=== PATIENT | female | born 1990 | race Caucasian/White ===

== ENCOUNTER → 2016-08-13 | Outpatient (CLI) | payer OTHER ==
[2016-08-13 15:24] LABS: CH 32.2; CHCM 32.8; HCT 34.1 % (34.0-46.0); HDW 2.34; HGB 10.9 gm/dL (11.4-16.0); MCH 31.6 pg (25.0-35.0); MCV 98.6 fL (80.0-100.0); Mean Platelet Volume 7.9; RBC 3.45 m/uL (3.80-5.40); RDW 13.3 % (11.5-15.5); WBC 7.2 k/uL (3.8-10.6)
== END | disposition home or self-care (01) ==
LOC: LABWHC1 14:00
PROVIDERS: ATTEND Obstetrics & Gynecology
DX: Z34.92 Encounter for supervision of normal pregnancy, unspecified, second trimester (principal); Z3A.00 Weeks of gestation of pregnancy not specified
CPT/HCPCS: 36415; 82950; 85027

== ENCOUNTER → 2016-10-14 | Outpatient (CLI) | payer OTHER ==
--- NOTE | 2016-10-14 11:55 | US ---
EXAMINATION TYPE: US OB anatomy transabd third trimester DATE OF EXAM: 10/14/2016 11:25 AM COMPARISON: In pacs first trimester May 14, 2016 HISTORY: Large for dates TECHNIQUE: Transabdominal (TA) pelvic ultrasound. EXAM MEASUREMENTS: GESTATIONAL AGE / DATING Physician Established: (33 weeks/0 days) EDC: 12/02/2016 Dates by LMP: Unknown Dates by First Scan: (33 weeks/6 days) EDC: 11/26/2016 Dates by Current Scan for: (34 weeks/1 days) EDC: 11/24/2016 SURVEY IUP: Single PLACENTA: Fundal PREVIA: No previa DOM: 14.3 cm Normal CERVICAL LENGTH (transabdominal: norm > 3.0cm): 4.1 cm BIOMETRY PRESENTATION: Vertex BPD: 8.5 cm 34 weeks / 2 days HC: 30.6 cm 34 weeks / 1 days AC: 28.7 cm 32 weeks / 6 days FL: 6.8 cm 35 weeks / 0 days ESTIMATED WEIGHT IN GRAMS: 2244 grams ESTIMATED WEIGHT IN LBS/OZS: 4 lbs. 15 oz. WEIGHT PERCENTAGE BASED ON ESTABLISHED DATE: 62 % HC/AC: 1.07 Normal FL/AC: 24% Normal HEART RATE: 144 bpm RHYTHM: Normal ANATOMY SEEN (within normal limits): Midline Falx Cavus Septi Pellucidi Four Chamber Heart Outflow tracts: LVOT/RVOT Stomach Situs Nose / Lips Diaphragm Kidneys (bilateral) Bladder Cord Insert Three Vessel Cord Longitudinal Spine ANATOMY NOT SEEN: Due to advanced age, 3rd trimester * Lateral Vent (< 1 cm) cm * Cisterna Magna (< 1.1 cm) cm * Nuchal Fold (< 0.6 cm) cm * Cerebellum (varies with age) cm Choroid Plexus (bilateral) Transverse Spine Arms (bilateral) Legs (bilateral) TECHNOLOGIST IMPRESSION: Viable single IUP measuring 34 weeks 1 day with a heart rate of 144bpm and an estimated delivery date of 11/24/2016. Single live intrauterine gestation is redemonstrated. Normal cephalad presentation to fetus is presen t currently. Amniotic fluid index is within normal limits. biometry measurements are congruent and within normal limits. Detailed anatomical survey is suboptimal due to advanced age and position, cranial structures a s well as bilateral extremities and spine are suboptimally evaluated during real-time scanning. Other structures noted above are within normal limits on still images saved and during real-time scanning. IMPRESSION: As above.
== END | disposition home or self-care (01) ==
LOC: RADUSWWP 10:39
PROVIDERS: ATTEND Obstetrics & Gynecology
DX: O36.63X0 Maternal care for excessive fetal growth, third trimester, not applicable or unspecified (principal); Z3A.34 34 weeks gestation of pregnancy
CPT/HCPCS: 76811

== ENCOUNTER 2016-11-23 18:49 | Inpatient (IN) | payer OTHER ==
[2016-11-23] MEDS ORDERED: CITRIC ACID-SODIUM CITRATE 15 ML CUP PO ONE (21:13)
[2016-11-23] MEDS ORDERED: LACTATED RINGERS 1,000 ML IV ONE (21:13)
--- NOTE | 2016-11-23 21:13 | US ---
EXAMINATION TYPE: US OB limited DATE OF EXAM: 11/23/2016 9:05 PM COMPARISON: Prior in PACS CLINICAL HISTORY: DOM, position. EXAM PERFORMED: Transabdominal (TA) GESTATIONAL AGE / DATING Physician Established: (38 weeks/5 days) EDC: 12/02/2016 Dates by Current Scan: No growth performed on today?s study per ordering physician SURVEY DOM: 4.3 cm Oligohydraminos Ultrasound evidence of premature rupture of membranes? Yes PRESENTATION: Vertex LIE: Longitudinal HEART RATE: 140 bpm RHYTHM: Normal Oligohydraminos IMPRESSION: There is oligohydramnios. The heart rate is 140. There is cephalic presentation.
--- NOTE | 2016-11-23 21:20 | P.HPOB ---
History of Present Illness H&P Date: 11/23/16 Chief Complaint: IUP term: previous c/s: MUKUND Alexander is a 26-year-old with a previous section desiring same. She reports that earlier this afternoon she began having leaking of fluid it last for several hours. However type skin labor delivery there was no more leaking. And Essure was negative. However I did order an ultrasound based on her description and her DOM is less than 5. With large maximal vertical pocket of 1.7 cm. I'm presuming rupture membranes and we'll proceed with repeat low transverse section. Her course otherwise has been unremarkable and she was scheduled for section on Tuesday.. Pertinent labs do include O+ blood type Rh was negative. Rubella was immune, hepatitis be surface antigen and RPR as well as cystic fibrosis screening and HIV were all negative. Risks/benefits alternatives to a repeat low transverse section have been discussed and all questions are answered for her prior to proceeding to the operating room. On physical exam vital signs are stable and afebrile. Heart regular, lungs clear, extremities without pain. Abdomen soft gravid uterus is noted. She is currently dilated to 3 cm 60% effaced -2 station. Assessment intrauterine at term: Previous section: SROM plan repeat low transverse section Past Medical History History of Any Multi-Drug Resistant Organisms: None Reported Smoking Status: Never smoker Medications and Allergies Home Medications Medication Instructions Recorded Confirmed Type Pnv with Ca,No.72/Iron/FA 1 tab PO DAILY 11/22/16 11/23/16 History [ Plus Tablet] Allergies Allergy/AdvReac Type Severity Reaction Status Date / Time No Known Allergies Allergy Verified 11/23/16 19:00 Exam Osteopathic Statement: *. No significant issues noted on an osteopathic structural exam other than those noted in the History and Physical/Consult. - Vital Signs Vital signs: Vital Signs Temp Pulse Resp BP Pulse Ox 11/23/16 19:11 98.2 F 69 16 134/82 98 Intake and Output 11/23/16 11/23/16 11/23/16 06:59 14:59 22:59 Other: Weight 79.832 kg Patient Weight 11/24/16 06:59 Weight 79.832 kg
[2016-11-23] MEDS ORDERED: ceFAZolin 2 GM in SODIUM CHLORIDE 0.9% 100 ML IVPB ONE (21:30)
[2016-11-23] MEDS ORDERED: ONDANSETRON 4 MG/2 ML VIAL ONE (21:35)
[2016-11-23] MEDS ORDERED: ePHEDrine 50 MG/ML 1 ML AMP ONE (21:35)
[2016-11-23] MEDS ORDERED: HYDROmorphone (PF) 1 MG/ML ONE (21:35)
[2016-11-23] MEDS ORDERED: KETOROLAC 30 MG/ML 1 ML VIAL ONE (21:35)
[2016-11-23] MEDS ORDERED: fentaNYL (PF) 50 MCG/ML 2 ML AMP ONE (21:35)
[2016-11-23] MEDS ORDERED: OXYTOCIN 10 UNIT/ML 1 ML VIAL IM ONE (21:35)
[2016-11-23 21:40] LABS: Basophils % (A) 0 %; CH 29.7; CHCM 32.3; Eosinophils # (A) 0.1 k/uL (0-0.7); Eosinophils % (A) 1 %; HCT 33.8 % (34.0-46.0); HDW 2.81; Hypochromasia Slight; Luc # (Auto) 0.15; Luc % (Auto) 2; Lymphocytes # (A) 1.7 k/uL (1.0-4.8); Lymphocytes % (A) 21 %; MCHC 32.5 g/dL (31.0-37.0); MCV 92.3 fL (80.0-100.0); Mean Platelet Volume 7.8; Monocytes # (A) 0.3 k/uL (0-1.0); Monocytes % (A) 4 %; Neutrophils # (A) 5.9 k/uL (1.3-7.7); Neutrophils % (A) 72 %; RBC 3.66 m/uL (3.80-5.40); RDW 13.7 % (11.5-15.5); WBC 8.1 k/uL (3.8-10.6); WBC (Perox) 8.41
--- NOTE | 2016-11-23 22:13 | P.OP ---
Date of Procedure: 11/23/16 Preoperative Diagnosis: IUP term: SROM: previous c/s Postoperative Diagnosis: same Procedure(s) Performed: Repeat low transverse section Anesthesia: spinal Surgeon: Santhosh Denton Seed Cleaner #1: Martínez Mccarthy Estimated Blood Loss (ml): 600 IV fluids (ml): 1,000 Urine output (ml): 300 Pathology: other (Placenta) Condition: stable Disposition: floor Operative Findings: Female scores of 8 and 9 at one and 5 minutes respectively and weight was 7 lbs. 2 oz. Description of Procedure: Patient was taken to the operating suite where a spinal anesthetic was found be adequate. She was prepped and draped in the normal sterile fashion placed in the dorsal supine position with leftward tilt. Initially a Pfannenstiel skin incision was made and this incision was then carried through to underlying layer of the fascia was second knife. Fascia was then nicked in the midline and this opening was extended laterally with Lang scissors. Superior and inferior aspect of this incision were then grasped tented up and bluntly and sharply dissected off the rectus muscles. Rectus muscles were then divided in the midline and blunt dissection through the peritoneum was made. This opening was then extended superiorly and inferiorly with good visualization of both bowel bladder. Bladder blade was then placed bladder flap identified and entered sharply with Metzenbaum scissors. His opening was then extended across face of the uterus with Metzenbaum scissors and bladder flap was digitally created. Knife was then used to incise uterus this opening was then opened fully with hemostat and extended bluntly. Head was then atraumatically delivered and mouth nares were bulb suctioned. Shoulders were then delivered with gentle downward upper traction followed by the remainder the baby. Umbilical cord was then clamped cut usual fashion an nursery personnel was present to assume care. Placenta was then delivered intact and Pitocin was added to the IV. Uterus was then exteriorized cleared of clots and debris and closed in 2 layers with 0 Vicryl suture. Once excellent hemostasis was obtained blood and debris was suctioned the posterior cul-de-sac and the uterus was reinserted into the abdomen. Peritoneal layer was then closed with 0 Vicryl suture fascial layer was closed with 0 Vicryl suture one layer of 3-0 Vicryl was placed in deep subcuticular tissues to reapproximate skin and the skin was then closed with 3-0 Vicryl in a Javier needle. Sponge, lap, needle counts were correct 2. Patient was then taken to the recovery room in stable and satisfactory condition.
[2016-11-23] MEDS ORDERED: SIMETHICONE 80 MG CHEWABLE PO PRN (23:27)
[2016-11-23] MEDS ORDERED: ACETAMINOPHEN TAB 325 MG TAB PO PRN (23:27)
[2016-11-23] MEDS ORDERED: diphenhydrAMINE 50 MG CAP PO PRN (23:27)
[2016-11-23] MEDS ORDERED: diphenhydrAMINE 50 MG/ML 1 ML VIAL IVP PRN ×2 (23:27)
[2016-11-23] MEDS ORDERED: Acetaminophen-Codeine 300-30mg TAB PO PRN ×2 (23:27)
[2016-11-23] MEDS ORDERED: KETOROLAC 30 MG/ML 1 ML VIAL IVP PRN (23:27)
[2016-11-23] MEDS ORDERED: NALOXONE 0.4 MG/ML 1 ML VIAL IV PRN (23:27)
[2016-11-23] MEDS ORDERED: METOCLOPRAMIDE 5 MG/ML 2 ML VIAL IVP PRN (23:27)
[2016-11-23] MEDS ORDERED: diphenhydrAMINE 25 MG CAP PO PRN (23:27)
[2016-11-23] MEDS ORDERED: ONDANSETRON 4 MG/2 ML VIAL IVP PRN (23:27)
[2016-11-23] MEDS ORDERED: IBUPROFEN 600 MG TAB PO PRN (23:27)
[2016-11-23] MEDS ORDERED: ZOLPIDEM 5 MG TAB PO PRN (23:27)
[2016-11-23] MEDS ORDERED: LACTATED RINGERS 1,000 ML IV SCH (23:27)
[2016-11-24] MEDS: LACTATED RINGERS 1,000 ML IV SCH ×4 (00:02→22:48)
[2016-11-24] MEDS ORDERED: NALOXONE 0.4 MG/ML 1 ML VIAL IV PRN (00:07)
[2016-11-24] MEDS ORDERED: diphenhydrAMINE 25 MG CAP PO PRN (00:07)
[2016-11-24] MEDS ORDERED: METOCLOPRAMIDE 5 MG/ML 2 ML VIAL IVP PRN (00:07)
[2016-11-24] MEDS ORDERED: Acetaminophen-Codeine 300-30mg TAB PO PRN ×2 (00:07)
[2016-11-24] MEDS ORDERED: ACETAMINOPHEN TAB 325 MG TAB PO PRN (00:07)
[2016-11-24] MEDS ORDERED: SIMETHICONE 80 MG CHEWABLE PO PRN (00:07)
[2016-11-24] MEDS ORDERED: ZOLPIDEM 5 MG TAB PO PRN (00:07)
[2016-11-24] MEDS ORDERED: diphenhydrAMINE 50 MG CAP PO PRN (00:07)
[2016-11-24] MEDS ORDERED: KETOROLAC 30 MG/ML 1 ML VIAL IVP PRN (00:07)
[2016-11-24] MEDS ORDERED: ONDANSETRON 4 MG/2 ML VIAL IVP PRN (00:07)
[2016-11-24] MEDS ORDERED: diphenhydrAMINE 50 MG/ML 1 ML VIAL IVP PRN ×2 (00:07)
--- NOTE | 2016-11-24 07:42 | P.PN ---
Progress Note - Text 0708 Anesthesia POD 1. Patient is status post section under spinal anesthesia with intra-thecal preservative free morphine 300 g. Minimal pruritus, good post-op analgesia, and no headache or other complications.
[2016-11-24] MEDS ORDERED: SENNOSIDES-DOCUSATE SODIUM 1 EACH TAB PO SCH (08:00)
[2016-11-24] MEDS: SENNOSIDES-DOCUSATE SODIUM 1 EACH TAB PO SCH ×2 (08:14→20:35)
--- NOTE | 2016-11-24 08:24 | P.PNOBGPC ---
Subjective - Subjective Principal diagnosis: Postop day 1 Interval history: Overall stairs doing very well. She is ambulating, and she is tolerating her diet. She voices no complaints. She did have some blood around her incision and the dressing was changed this morning otherwise she is stable. Patient reports: Reports appetite normal, Reports voiding normally, Reports pain well controlled, Reports ambulating normally [place]: doing well Objective - Vital Signs Latest vital signs: Vital Signs Temp Pulse Resp BP Pulse Ox 11/24/16 04:00 97.9 F 72 14 121/82 98 11/24/16 00:18 97.1 F L 72 16 144/76 98 11/23/16 23:48 97.1 F L 66 16 137/74 100 11/23/16 23:18 97.0 F L 70 14 140/79 99 11/23/16 23:03 69 16 141/78 99 11/23/16 22:48 97.1 F L 73 14 136/79 98 11/23/16 22:33 72 14 120/68 98 11/23/16 22:18 97.4 F L 70 14 141/67 98 11/23/16 19:11 98.2 F 69 16 134/82 98 Intake and Output 11/23/16 11/24/16 11/24/16 22:59 06:59 14:59 Intake Total 1000 1100 Output Total 900 2100 Balance 100 -1000 Intake: IV 1000 1000 Lactated Ringers 1,000 ml 1000 @ 125 mls/hr IV .Q8H [facility] Rx#:[id number] Intake, IV Titration 100 Amount ceFAZolin 2 gm In Sodium 100 Chloride 0.9% 100 ml @ 100 mls/hr IVPB ONCE ONE Rx#:[id number] Output: Urine 300 2100 Uretheral (Chauhan) 2000 Estimated Blood Loss 600 Other: Voiding Method Indwelling Catheter Indwelling Catheter Weight 79.832 kg - Exam Lungs: bilateral: normal Chest: Normal S1, Normal S2 Extremities: Present: normal Abdomen: Present: normal appearance, soft. Absent: distention, tenderness Incision: Present: normal, dry, intact Uterus: Present: normal, firm - Labs Labs: Abnormal Lab Results - Last 24 Hours (Table) 11/23/16 Range/Units 21:15 RBC 3.66 L (3.80-5.40) m/uL Hgb 11.0 L (11.4-16.0) gm/dL Hct 33.8 L (34.0-46.0) %
[2016-11-24] MEDS: IBUPROFEN 600 MG TAB PO PRN (18:52)
[2016-11-25 06:32] VITALS: RESP 16
[2016-11-25 06:49] LABS: Basophils % (A) 0 %; CH 29.7; CHCM 32.3; Eosinophils # (A) 0.1 k/uL (0-0.7); Eosinophils % (A) 1 %; HCT 31.5 % (34.0-46.0); HDW 2.95; HGB 10.2 gm/dL (11.4-16.0); Hypochromasia Slight; Luc # (Auto) 0.17; Luc % (Auto) 2; Lymphocytes % (A) 28 %; MCHC 32.5 g/dL (31.0-37.0); MCV 92.3 fL (80.0-100.0); Mean Platelet Volume 7.2; Monocytes # (A) 0.3 k/uL (0-1.0); Monocytes % (A) 4 %; Neutrophils # (A) 4.5 k/uL (1.3-7.7); Neutrophils % (A) 65 %; RBC 3.41 m/uL (3.80-5.40); RDW 13.5 % (11.5-15.5); WBC (Perox) 7.66
[2016-11-25] MEDS: LACTATED RINGERS 1,000 ML IV SCH (07:33)
[2016-11-25] MEDS: SENNOSIDES-DOCUSATE SODIUM 1 EACH TAB PO SCH (07:47)
[2016-11-25] MEDS: IBUPROFEN 600 MG TAB PO PRN (07:47)
[2016-11-25 09:15] VITALS: BP 128/76; PULSE 63; TEMP 97
--- NOTE | 2016-11-25 12:38 | P.DS ---
Providers Date of admission: 11/23/16 21:10 Expected date of discharge: 11/25/16 Attending physician: Santhosh Denton Primary care physician: Santhosh Denton [facility] Course: This is a 26-year-old female 2 para 1 at 38 weeks who presented in labor. Please see history and physical for details the patient admission. She underwent a repeat low transverse section on 11/23/2016 and delivered a viable female infant with scores of 8 at 1 minute and 9 at 5 minutes and weight of 7 lbs. 2 oz. Her postoperative course has been essentially uncomplicated. She did have some bleeding from her incision on postoperative day #1 that has resolved. She is passing flatus and did have a small bowel movement. She is bottle feeding. Lochia is decreasing. Pain is well-controlled on oral pain medications. Vital signs are stable. Abdomen is soft with fundus firm and nontender. Incision is clean dry and intact with some ecchymosis noted underneath the incision. Extremities show negative Homans. Impression is status post repeat section postoperative day # 2. Plan is to discharge home today. Routine postoperative and instructions are given. She is advised to follow up with Dr. Denton in the office in 1 week. He has already written prescriptions for her. She is advised to call the office if she needs anything further prior to her appointment time. Procedures: Repeat low transverse section on 11/23/2016. Patient Condition at Discharge: Stable Plan - Discharge Summary New Discharge Prescriptions: Acetaminophen-Codeine 300-30mg [Tylenol #3] 1 tab PO Q4H PRN #30 tablet PRN Reason: Pain Ibuprofen [Motrin] 600 mg PO Q6HR PRN #30 tab PRN Reason: Pain Discharge Medication List Pnv with Ca,No.72/Iron/FA [ Plus Tablet] 1 tab PO DAILY 11/22/16 [ History] Acetaminophen-Codeine 300-30mg [Tylenol #3] 1 tab PO Q4H PRN #30 tablet [Rx] Ibuprofen [Motrin] 600 mg PO Q6HR PRN #30 tab 11/24/16 [Rx] Follow up Appointment(s)/Referral(s): Santhosh Denton DO [Primary Care Provider] - 1 Week Activity/Diet/Wound Care/Special Instructions: Ting, limit stairs and driving and pelvic rest. If any high temperatures, heavy bleeding, or severe pain call my office Discharge Disposition: HOME SELF-CARE
== END 2016-11-25 13:50 | disposition home or self-care (01) | DRG 766 ==
LOC: FBPOP 18:49 → 4FBP 21:10
PROVIDERS: ADMIT Obstetrics & Gynecology; ATTEND Obstetrics & Gynecology
PROC: 10D00Z1 Extraction of Products of Conception, Low, Open Approach (ICD-10-PCS; principal; 2016-11-23 21:44)
DX: O42.92 Full-term premature rupture of membranes, unspecified as to length of time between rupture and onset of labor (principal); Z37.0 Single live birth; O34.219 Maternal care for unspecified type scar from previous cesarean delivery; Z3A.38 38 weeks gestation of pregnancy
CPT/HCPCS: 59025; 76815; 84112; 85025; 86850; 86900; 86901; 88307; 99213

== ENCOUNTER 2023-05-13 06:00 | Inpatient (IN) | payer OTHER ==
--- NOTE | 2023-05-12 19:00 | P.HPOB ---
History of Present Illness H&P Date: 05/12/23 Chief Complaint: Scheduled repeat section with bilateral tubal ligation This is a 32 y.o. female, 3, para 2, with an estimated date of confinement of 05/20/2023 based on 11-5/7 week US inconsistent with LMP, estimated gestational age of 39-0/7 weeks, who presents for repeat low transverse section with bilateral partial salpingectomy for family jacqueline nning. She transferred care to de at 16 weeks. Her has been relatively uncomplicated. Ultrasound at 34 weeks showed estimated weight of 5#9oz (64%). labs: Blood type-O+ Antibody screen-neg RPR-NR Rubella-immune Hepatitis B surface antigen-neg Hepatitis C-neg GC/Chlamydia-neg Hemoglobin-11.5 HIV-NR 1 HR. GTT-113 Toxoplasma-neg GBS-neg OB Hx: . History of 2 previous sections. 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 Review of Systems Constitutional: Denies chills, Denies fever Eyes: denies blurred vision, denies pain Ears, nose, mouth and throat: Denies headache, Denies sore throat Cardiovascular: Denies chest pain, Denies shortness of breath Gastrointestinal: Reports abdominal pain (irregular contractions) Genitourinary: Reports pelvic pain, Reports Musculoskeletal: Reports low back pain Integumentary: Denies pruritus, Denies rash Neurological: Denies numbness, Denies weakness Psychiatric: Denies anxiety, Denies depression Past Medical History Past Medical History: No Reported History Past Surgical History: Section (x2) Additional Past Surgical History / Comment(s): Oral surgery Past Psychological History: No Psychological Hx Reported Smoking Status: Never smoker Past Alcohol Use History: None Reported Past Drug Use History: None Reported - Past Family History Mother Family Medical History: Cancer (skin) Medications and Allergies Home Medications Medication Instructions Recorded Confirmed Type No Known Home Medications 05/13/23 05/13/23 History Allergies Allergy/AdvReac Type Severity Reaction Status Date / Time No Known Allergies Allergy Verified 05/13/23 06:09 Exam Osteopathic Statement: *. No significant issues noted on an osteopathic structural exam other than those noted in the History and Physical/Consult. HEENT: within normal limits Heart: regular rate and rhythm Lungs: clear to auscultation bilaterally Abdomen: , non-tender Cervix: 1 cm/60%/-3 heart tones: 140's by doppler Extremities: neg. Myah's Results Result Diagrams: 05/13/23 06:11 Assessment and Plan (1) 39 weeks gestation of Current Visit: No Status: Acute Code(s): Z3A.39 - 39 WEEKS GESTATION OF SNOMED Code(s): 88644494 Plan: Admission for scheduled repeat section with bilateral partial salpingectomy. I have discussed the risks, benefits, and alternative therapies for the above- mentioned procedure and for both sedation/anesthesia as well as necessary blood products administration, if indicated, as they pertain to this patient. The patient has indicated her understanding and acceptance of the risks and procedures discussed.
[~2023-05-13 06:00] MED LIST: CARBOPROST TROMETHAMINE 250 MCG/ML 1 ML AMP IM PRN; CITRIC ACID-SODIUM CITRATE 15 ML CUP PO ONE; LACTATED RINGERS 1,000 ML IV ONE; LIDOCAINE 1% (10MG/ML) FOR IV START INTRADERMA PRN; METHYLERGONOVINE 0.2 MG/ML 1 ML AMP IM PRN; OXYTOCIN 10 UNIT/ML 1 ML VIAL IM PRN; OXYTOCIN 30 UNITS/500 ML NS 30 UNIT in SALINE 1 500ML.BAG IV SCH; TRANEXAMIC 1,000 MG/100ML-NACL 1,000 MG in EMPTY BAG 1 BAG IV PRN; miSOPROStoL 200 MCG TAB PO PRN
[2023-05-13 06:25] LABS: Basophils % (A) 0 %; Eosinophils # (A) 0.1 k/uL (0-0.7); Eosinophils % (A) 1 %; HCT 33.4 % (34.0-46.0); HGB 11.3 gm/dL (11.4-16.0); Lymphocytes # (A) 1.8 k/uL (1.0-4.8); Lymphocytes % (A) 27 %; MCH 31.2 pg (25.0-35.0); MCHC 33.8 g/dL (31.0-37.0); MCV 92.3 fL (80.0-100.0); Mean Platelet Volume 8.2; Monocytes # (A) 0.3 k/uL (0-1.0); Monocytes % (A) 4 %; Neutrophils # (A) 4.5 k/uL (1.3-7.7); Neutrophils % (A) 65 %; Platelet Count 264 k/uL (150-450); RBC 3.62 m/uL (3.80-5.40); RDW 13.8 % (11.5-15.5); WBC 6.8 k/uL (3.8-10.6)
[2023-05-13] MEDS: LACTATED RINGERS 1,000 ML IV SCH ×4 (06:28→20:22)
[2023-05-13] MEDS ORDERED: ONDANSETRON 4 MG/2 ML VIAL ONE (07:52)
[2023-05-13] MEDS ORDERED: OXYTOCIN 30 UNITS/500 ML NS BAG IV ONE (07:52)
[2023-05-13] MEDS ORDERED: WATER FOR INJECTION, STERILE 10 ML VIAL IV ONE (07:52)
[2023-05-13] MEDS ORDERED: PHENYLEPHRINE-0.9% NACL SYG 1,000 MCG/10 ML SYRINGE ONE (07:52)
[2023-05-13] MEDS ORDERED: MORPHINE SULFATE (PF) 0.3 MG/0.3 ML SYR ONE (07:52)
[2023-05-13] MEDS ORDERED: ePHEDrine 50 MG/ML 1 ML VIAL ONE (07:52)
[2023-05-13] MEDS ORDERED: KETOROLAC 30 MG/ML 1 ML VIAL ONE (07:52)
--- NOTE | 2023-05-13 08:44 | P.OP ---
Date of Procedure: 05/13/23 Preoperative Diagnosis: 1. Intrauterine at 39-0/7 weeks. 2. History previous sections. 3. Family-planning. Postoperative Diagnosis: Same Procedure(s) Performed: Repeat low transverse section with bilateral partial salpingectomy Anesthesia: spinal (Duramorph) Surgeon: Jazmyne Walls Edging Catcher #1: Mohamud Diaz Estimated Blood Loss (ml): 400 Pathology: other (Portions of right left fallopian tubes) Condition: stable Disposition: floor Indications for Procedure: This is a 32-year-old female 3 para 2 at 39-0/7 weeks who presents for scheduled repeat low transverse section with bilateral partial salpingectomy for family planning. I have discussed the risks, benefits, and alternative therapies for the above- mentioned procedure and for both sedation/anesthesia as well as necessary blood products administration, if indicated, as they pertain to this patient. The patient has indicated her understanding and acceptance of the risks and procedures discussed. Operative Findings: A viable male infant is noted in the vertex presentation with nuchal cord 1 and scores of 9 at 1 minute and 9 at 5 minutes and weight of 7 lbs. 8 oz. Normal uterus tubes and ovaries are noted. Description of Procedure: The patient is taken to the operating room where she is placed in the dorsal supine position with leftward tilt after spinal Duramorph anesthesia is given. She is prepped and draped in the normal sterile fashion. Skin was tested and found to be adequately anesthetized. A Pfannenstiel skin incision was made with a scalpel through the previous laparotomy scar. A second knife was used to carry the incision down to the underlying layer of fascia. The fascia was nicked in the midline with a scalpel and then extended laterally bilaterally with Lang scissors. The anterior lip of the fascia was grasped with 2 Jung clamps and then dissected off the underlying rectus muscle in the midline with Lang scissors. The inferior aspect of the fascial incision was grasped with 2 Jung clamps and dissected off the underlying rectus muscle and the midline with Lang scissors. Next the peritoneum layer was tented up with 2 hemostats an d then entered sharply with the scalpel. The incision is extended superiorly and inferiorly with Metzenbaum scissors. Next a DeLee retractor is placed. The vesicouterine peritoneum is entered sharply with Metzenbaum scissors and extended laterally bilaterally with Metzenbaum scissors and then the bladder flap is pushed inferiorly. The lower uterine segment is noted to be very thin and is incised in transverse fashion with the scalpel and then bluntly entered with a hemostat. Clear fluid is noted. The incision was then extended laterally bilaterally with 2 fingers. Next the 's head is delivered through the incision. Nose and mouth are bulb suctioned. The remainder of the is easily delivered and placed on mother's abdomen. Cord is clamped and cut. is taken to warmer by nursing staff. Uterine fundus is gently massaged and placenta is delivered manually. Uterus is exteriorized and cleared of all clots and debris. Uterine incision is closed with 0 Vicryl suture in a running locked fashion. A second layer of 0 Vicryl suture is used in a running fashion for hemostasis. Attention is then turned to the tubes. The right fallopian tube is grasped in the midportion with a hemostat. Mesosalpinx is entered with Bovie cautery. 0 Vicryl suture is tied 2 times around both the proximal and distal portion of the tube. The knuckle of tube was then removed with Metzenbaum scissors. The ends of the tubes are then cauterized with Bovie cautery. The same procedure is carried out on the left fallopian tube. Hemostasis is noted. Posterior cul-de-sac is suctioned of all clots and debris. Uterus is returned to the abdomen. Incision is noted to be hemostatic. Both tubal sites are inspected and appeared to be hemostatic. Peritoneal layer is closed with 0 Vicryl suture in a running fashion. Muscle layer is reapproximated with 0 Vicryl suture in interrupted fashion. Fascia layer is then closed with 0 PDS suture with 2 sutures meeting in the midline and the knots buried in either side and in the midline. The subcutaneous tissue was then closed with 2-0 Vicryl suture. Skin layer was then closed with ovi. All sponge and needle counts are correct. The patient is taken to recovery room in stable condition.
[2023-05-13] MEDS ORDERED: HYDROmorphone 0.5 MG/0.5 ML SYRINGE IVP PRN (08:46)
[2023-05-13] MEDS ORDERED: METOCLOPRAMIDE 5 MG/ML 2 ML VIAL IVP PRN (08:46)
[2023-05-13] MEDS ORDERED: diphenhydrAMINE 25 MG CAP PO PRN (08:46)
[2023-05-13] MEDS ORDERED: NALOXONE 0.4 MG/ML 1 ML VIAL IV PRN ×2 (08:46→08:59)
[2023-05-13] MEDS ORDERED: diphenhydrAMINE 50 MG/ML 1 ML VIAL IVP PRN ×2 (08:46)
[2023-05-13] MEDS ORDERED: LANOLIN CREAM 5 GM TUBE TOPICAL PRN (08:46)
[2023-05-13] MEDS ORDERED: HYDROmorphone 1 MG/ML 1 ML SYRINGE IVP PRN (08:46)
[2023-05-13] MEDS ORDERED: diphenhydrAMINE 50 MG CAP PO PRN (08:46)
[2023-05-13] MEDS ORDERED: ZOLPIDEM 5 MG TAB PO PRN (08:46)
[2023-05-13] MEDS ORDERED: ONDANSETRON 4 MG/2 ML VIAL IVP PRN (08:46)
[2023-05-13] MEDS ORDERED: SIMETHICONE 80 MG CHEWABLE PO PRN (08:46)
[2023-05-13] MEDS ORDERED: MORPHINE SULFATE 2 MG/ML SYRINGE IVP PRN (08:59)
[2023-05-13] MEDS: SENNOSIDES-DOCUSATE SODIUM 1 EACH TAB PO SCH ×2 (11:20→19:35)
[2023-05-13] MEDS: ACETAMINOPHEN IV (For NPO) 1,000 MG in EMPTY BAG 1 BAG IVPB SCH ×2 (12:10→18:13)
[2023-05-13] MEDS: ACETAMINOPHEN TAB 500 MG TAB PO SCH ×2 (12:43→18:03)
[2023-05-13] MEDS: KETOROLAC 15 MG/ML 1 ML VIAL IVP SCH (15:14)
[2023-05-13] MEDS: IBUPROFEN 600 MG TAB PO SCH ×3 (15:19→21:07)
[2023-05-14] MEDS: ACETAMINOPHEN TAB 500 MG TAB PO SCH ×4 (00:01→19:45)
[2023-05-14] MEDS: KETOROLAC 15 MG/ML 1 ML VIAL IVP SCH ×2 (02:27→06:05)
[2023-05-14] MEDS: IBUPROFEN 600 MG TAB PO SCH ×4 (03:18→23:59)
[2023-05-14] MEDS: LACTATED RINGERS 1,000 ML IV SCH (06:17)
[2023-05-14 06:52] LABS: Basophils % (A) 0 %; Eosinophils # (A) 0.1 k/uL (0-0.7); Eosinophils % (A) 1 %; HCT 28.7 % (34.0-46.0); Lymphocytes # (A) 1.7 k/uL (1.0-4.8); Lymphocytes % (A) 21 %; MCH 30.4 pg (25.0-35.0); MCV 95.1 fL (80.0-100.0); Mean Platelet Volume 7.7; Monocytes # (A) 0.3 k/uL (0-1.0); Monocytes % (A) 3 %; Neutrophils # (A) 5.8 k/uL (1.3-7.7); Neutrophils % (A) 73 %; Platelet Count 234 k/uL (150-450); RBC 3.02 m/uL (3.80-5.40); RDW 13.6 % (11.5-15.5); WBC 7.9 k/uL (3.8-10.6)
[2023-05-14 07:03] LABS: HGB 9.2 gm/dL (11.4-16.0)
--- NOTE | 2023-05-14 07:03 | P.PN ---
Progress Note - Text Progress Note Date: 05/14/23 Postop day 1 from under spinal anesthesia with intrathecal morphine given for postop pain management. Patient is doing well. Pain is well controlled. On visual analog scale 3/10 Mild itching present No nausea or vomiting reported. No Headache or weakness and numbness in the legs. No complications from spinal anesthesia.
[2023-05-14] MEDS: SENNOSIDES-DOCUSATE SODIUM 1 EACH TAB PO SCH ×2 (09:48→19:45)
[2023-05-14 09:51] VITALS: RESP 16
--- NOTE | 2023-05-14 09:55 | P.PNOBGPC ---
Subjective - Subjective Principal diagnosis: Status post repeat low transverse with TL postop day 1 Interval history: Patient seen and examined. Denies nausea, vomiting, chest pain, shortness of breath or calf pain. Patient reports: Reports appetite normal, Reports voiding normally, Reports pain well controlled, Reports ambulating normally : doing well Objective - Vital Signs Latest vital signs: Vital Signs Temp Pulse Resp BP Pulse Ox 05/14/23 09:41 98 F 66 16 108/68 05/14/23 06:32 18 05/14/23 05:00 16 98 05/14/23 03:37 97.8 F 58 L 16 102/58 98 05/14/23 03:00 16 05/14/23 00:41 16 99 05/14/23 00:00 97.9 F 61 16 95/52 99 05/13/23 23:00 16 05/13/23 21:00 16 98 05/13/23 19:34 98.1 F 67 16 118/69 98 05/13/23 19:00 16 05/13/23 16:00 97.5 F L 69 16 129/71 99 05/13/23 15:00 16 05/13/23 13:00 65 16 97 05/13/23 11:00 95.9 F L 58 L 16 105/59 93 L 05/13/23 10:45 58 L 16 109/65 97 05/13/23 10:15 63 16 112/83 98 Intake and Output 05/13/23 05/14/23 05/14/23 22:59 06:59 14:59 Output Total 1300 Balance -1300 Output: Urine 1300 Uretheral (Chauhan) 400 Other: # Voids 1 2 1 - Exam Lungs: bilateral: normal Chest: Normal S1, Normal S2 Extremities: Present: normal Abdomen: Present: normal appearance, soft. Absent: distention, tenderness Incision: Present: normal, dry, intact Uterus: Present: normal, firm - Labs Labs: Abnormal Lab Results - Last 24 Hours (Table) 05/14/23 Range/Units 06:29 RBC 3.02 L (3.80-5.40) m/uL Hgb 9.2 L D (11.4-16.0) gm/dL Hct 28.7 L (34.0-46.0) % Assessment and Plan (1) Status post repeat low transverse section Current Visit: Yes Status: Acute Code(s): Z98.891 - HISTORY OF UTERINE SCAR FROM PREVIOUS SURGERY SNOMED Code(s): 897659709 (2) Status post tubal ligation at time of delivery, current hosp Current Visit: Yes Status: Acute Code(s): O80 - ENCOUNTER FOR FULL-TERM UNCOMPLICATED DELIVERY; Z30.2 - ENCOUNTER FOR STERILIZATION SNOMED Code(s): 98629764230627 Plan: 1. Continue postoperative care 2. By mouth pain medications
[2023-05-15] MEDS: ACETAMINOPHEN TAB 500 MG TAB PO SCH (01:36)
[2023-05-15] MEDS: IBUPROFEN 600 MG TAB PO SCH (06:16)
[2023-05-15] MEDS: SENNOSIDES-DOCUSATE SODIUM 1 EACH TAB PO SCH (08:18)
[2023-05-15 08:20] VITALS: BP 116/75; PULSE 66; TEMP 97.8
--- NOTE | 2023-05-15 10:01 | P.DS ---
Providers Date of admission: 05/13/23 06:00 Expected date of discharge: 05/15/23 Attending physician: Jazmyne Walls Primary care physician: Stated None - Discharge Diagnosis(es) (1) Status post repeat low transverse section Current Visit: Yes Status: Acute (2) Status post tubal ligation at time of delivery, current hosp Current Visit: Yes Status: Acute Hospital Course: Patient presented for repeat low transverse . She underwent this procedure without complication. She denies nausea, vomiting, chest pain, shortness of breath or calf pain. Patient will be discharged home post operative day #2 in stable condition to follow-up with Dr. Walls in one week. Plan - Discharge Summary New Discharge Prescriptions: New Ibuprofen [Motrin] 600 mg PO Q6H #30 tab No Action Pnv,Calcium 72/Iron/Folic Acid [ Plus Tablet] 1 tab PO DAILY Acetaminophen-Codeine 300-30mg [Tylenol #3] 1 tab PO Q4H PRN #30 tablet PRN Reason: Pain Ibuprofen [Motrin] 600 mg PO Q6HR PRN #30 tab PRN Reason: Pain Discharge Medication List Pnv,Calcium 72/Iron/Folic Acid [ Plus Tablet] 1 tab PO DAILY 11/22/16 [History] Acetaminophen-Codeine 300-30mg [Tylenol #3] 1 tab PO Q4H PRN #30 tablet 11/24/16 [Rx] Ibuprofen [Motrin] 600 mg PO Q6HR PRN #30 tab 11/24/16 [Rx] Ibuprofen [Motrin] 600 mg PO Q6H #30 tab 05/15/23 [Rx] Follow up Appointment(s)/Referral(s): Jazmyne Walls DO [Doctor of Osteopathic Medicine] - 1 Week (PO 05/27/2023 @2:45 PP 06/21/2023 @4:00) Discharge Disposition: HOME SELF-CARE
== END 2023-05-15 10:40 | disposition home or self-care (01) | DRG 785 ==
LOC: 4FBP 06:00 → MERGE 06:00
PROVIDERS: ADMIT Obstetrics & Gynecology; ATTEND Obstetrics & Gynecology
PROC: 10D00Z1 Extraction of Products of Conception, Low, Open Approach (ICD-10-PCS; principal; 2023-05-13 08:00)
PROC: 0UB70ZZ Excision of Bilateral Fallopian Tubes, Open Approach (ICD-10-PCS; principal; 2023-05-13 08:00)
DX: O34.211 Maternal care for low transverse scar from previous cesarean delivery (principal); O69.81X0 Labor and delivery complicated by cord around neck, without compression, not applicable or unspecified; Z30.2 Encounter for sterilization; Z28.310 Unvaccinated for COVID-19; Z37.0 Single live birth; Z3A.39 39 weeks gestation of pregnancy; Z79.899 Other long term (current) drug therapy
CPT/HCPCS: 85025; 86850; 86900; 86901; 88302